=== PATIENT | female | born 1960 | race Caucasian/White ===

== ENCOUNTER 2016-10-23 11:31 | Emergency (ER) | payer OTHER, MEDICARE ==
[~2016-10-23] VITALS: Ht 165.1 cm; Wt 101.2 kg
[~2016-10-23 11:31] MED LIST: CLEOCIN HCL300 MG PO; CRESTOR20 MG PO; CRESTOR40 M1 PO; DIFLUCAN150 MG PO; DOXYCYCLINE MO100 MG PO; ERYTHROMYCIN5 MG/GM OPH; FLEXERIL10 MG PO; JANUMET 1000 MG1 TAB PO; LANTUS SOL100 UNIT/1 SC; LISINOPRIL10 MG PO; LYRICA150 MG PO; MECLIZINE HCL25 M1 PO; METFORMIN HYDR850 MG PO; MIRAPEX0.125 MG PO; MOTRIN800 MG PO; NORCO 325 MG-51 TAB PO; NOVOLOG FL100 UNIT/1 SC; PERCOCET 325 MG1 TA2 PO; PERCOCET 5-3251 EACH PO; PROTONIX 20MG T20 MG PO; RITE AID MELATO10 MG PO; TRAMADOL HCL50 M1 PO; VICODIN 5-3001 EACH PO; VICODIN5-300 PO; VITAMIN D50000 IU PO; ZZZQUIL50 MG/30 M PO
--- NOTE | 2016-10-23 14:44 | ED SKIN/ALLERGY COMPLAINT ---
History of Present Illness General Chief Complaint: Foot or Ankle Injury Stated Complaint: PT HAS PROBLEM WITH HER LEFT FOOT SWELLING Source: patient Exam Limitations: no limitations Vital Signs & Intake/Output Vital Signs & Intake/Output Vital Signs Date Time Temp Pulse Resp B/P Pulse O2 O2 Flow FiO2 Ox Delivery Rate 10/23 1524 98.5 83 20 164/80 94 Room Air 10/23 1201 97.8 91 20 116/78 95 Room Air Allergies Coded Allergies: amoxicillin (Severe, RESPIRATORY, RASH 10/23/16) codeine (Severe, HIVES, RESPIRATORY 10/23/16) clarithromycin (From BIAXIN) (Intermediate, GI 10/23/16) Reconcile Medications Ciprofloxacin HCl (Cipro) 500 MG TABLET 1 TAB PO BID SKIN INFECTION Fluconazole (Diflucan) 200 MG TABLET 1 TAB PO DAILY YEAST INFECTION Hydrocodone/Acetaminophen (Milton 5-325 Tablet) 5 MG-325 MG TABLET 1 TAB PO Q4- 6 PRN PRN FOOT PAIN Hydrocodone/Acetaminophen (Vicodin 5-300 MG Tablet) 1 EACH TABLET 1 TAB PO TID PAIN Insulin Aspart, Recombinant (Novolog Flexpen) 100 UNIT/ML INSULN.PEN 8 UNIT SC TID DM (Reported) Insulin Glargine,Hum.rec.anlog (Lantus Solostar) 100 UNIT/ML (3 ML) INSULN.PEN 40 UNIT SC QHS DM (Reported) [LEG CRAMPS] 2 TAB PO QPM RLS (Reported) Lisinopril 10 MG TABLET 1 TAB PO DAILY BP (Reported) Melatonin 10 MG CAPSULE 40 MG PO QPM SLEEP (Reported) Oxycodone HCl/Acetaminophen (Percocet 5-325 MG Tablet) 1 EACH TABLET 1 TAB PO BID PRN pain Pantoprazole Sodium 20 MG TABLET.DR 1 TAB PO DAILY GI (Reported) Rosuvastatin Calcium (Crestor) 40 MG TABLET 1 TAB PO DAILY CHOLESTEROL ( Reported) Sitagliptin Phos/Metformin HCl (Janumet 50-1,000 MG Tablet) 50 MG-1,000 MG TABLET 1 TAB PO BID DM (Reported) Sulfamethoxazole/Trimethoprim (Bactrim Ds Tablet) 800 MG-160 MG TABLET 1 TAB PO BID SKIN INFECTION Tramadol HCl 50 MG TABLET 1 TAB PO Q6HR PRN PAIN Triage Note: TRIAGE: PT TO ER C/C L FOOT PAIN X 1 WEEK, CONSTANT SINCE ONSET, RADIATES FROM TOP OF FOOT AND INTO TOES. TRIED IBUPROFEN "WHICH ISN'T HELPING". Triage Nurses Notes Reviewed? yes HPI: Patient presents for evaluation of painful swelling with mild redness of the left foot and toes that began gradually about one week ago. Patient describes it as a constant stabbing pain that becomes severe with walking. She denies any known injury or prior episodes. Nothing seems to make the foot feel better. No associated fever or cold symptoms. Past History Travel History Traveled to [place] past 21 day No Medical History Any Pertinent Medical History? see below for history Neurological: NONE EENT: NONE Cardiovascular: hyperlipidemia Respiratory: NONE Gastrointestinal: NONE Hepatic: NONE Renal: NONE Musculoskeletal: NONE Psychiatric: NONE Endocrine: diabetes Blood Disorders: NONE Cancer(s): NONE CHIEF HUMAN RESOURCES OFFICER/Reproductive: NONE Tetanus Vaccine: 11/02/15 Surgical History Surgical History: non-contributory Psychosocial History Who do you live with Family Services at Home None What is your primary language Divehi Tobacco Use: Current Daily Use Daily Tobacco Use Amount/Type: => 5 Cigarettes daily ETOH Use: occasional use Illicit Drug Use: denies illicit drug use Family History Hx Contributory? No Review of Systems Review of Systems Constitutional: Reports: no symptoms. EENTM: Reports: no symptoms. Respiratory: Reports: no symptoms. Cardiovascular: Reports: no symptoms. GI: Reports: no symptoms. Genitourinary: Reports: no symptoms. Musculoskeletal: Reports: no symptoms. Skin: Reports: see HPI. Neurological/Psychological: Reports: no symptoms. Hematologic/Endocrine: Reports: no symptoms. Immunologic/Allergic: Reports: no symptoms. All Other Systems: Reviewed and Negative Physical Exam Physical Exam General Appearance: SEE BELOW Comments: Gen.: Well-nourished, well-developed, no acute respiratory distress. Head: Normocephalic, atraumatic. Eyes: Normal inspection bilaterally Ears: Normal inspection bilaterally Nose: Normal inspection, nasal cannula in place Throat/mouth : Moist mucosa Neck: Supple, full range of motion, no goiter Heart: Regular rate and rhythm Lungs: Quiet respirations Back: Normal range of motion Extremities: Left foot: Mild soft tissue swelling and erythema of the toes and distal foot, patient's toenails are thickened and slightly discolored. Neurologic: Cranial nerves grossly intact, speech is clear Skin: warm and dry Psychiatric: Calm, cooperative, no apparent delusions or hallucinations Progress Differential Diagnosis: abscess/cellulitis, OCCULT TRAUMA Plan of Care: Orders Procedure Date/time Status Durable Medical Equipment 10/23 1601 Active Diagnostic Imaging: Discussed w/RAD: Radiology Read. Radiology Impression: PATIENT: MONICA NICHOLSON PRESENT AGE: 56 PATIENT ACCOUNT NO: [id number] : 64 LOCATION: [facility] ORDERING PHYSICIAN: NICK GUTIERRES MD SERVICE DATE: 10/23/16-1441 EXAM TYPE: RAD - XRY-FOOT COMPLETE, LEFT EXAMINATION: XR FOOT, LEFT CLINICAL INFORMATION: Swelling and tenderness of distal left foot. Evaluate for occult trauma. COMPARISON: None TECHNIQUE: AP, lateral, and oblique views of the left foot. FINDINGS: No fracture or malalignment is identified. There are plantar and posterior calcaneal spurs. There are mild degenerative changes of the talonavicular joint. There is mild nonspecific soft tissue swelling in the dorsum of the distal foot. IMPRESSION: Minor degenerative changes. Mild dorsal soft tissue swelling. Calcaneal spurs. Otherwise, unremarkable radiographs. DICTATED BY: TAI EL MD DATE/TIME DICTATED:10/23/161506 ELECTRIC MOTOR TESTER ASSEMBLER:RUBA DATE/TIME TRANSCRIBED:10/23/161506 CONFIDENTIAL, DO NOT COPY WITHOUT APPROPRIATE AUTHORIZATION. <Electronically signed in Other Vendor System> SIGNED BY: TAI EL MD 10/23/161512 Comments: Patient treated with an [place]ago wrap and provided crutches. Departure Departure Disposition: HOME OR SELF CARE Condition: Stable Clinical Impression Primary Impression: Cellulitis of left foot Referrals: KENA DODD (PCP/Family) Departure Forms: Customer Survey General Discharge Information Prescriptions: Current Visit Scripts Ciprofloxacin HCl (Cipro) 1 TAB PO BID #14 TAB Sulfamethoxazole/Trimethoprim (Bactrim Ds Tablet) 1 TAB PO BID #14 TAB Fluconazole (Diflucan) 1 TAB PO DAILY #3 TAB Hydrocodone/Acetaminophen (Milton 5-325 Tablet) 1 TAB PO Q4-6 PRN PRN FOOT PAIN #16 TAB
--- NOTE | 2016-10-23 15:13 | RADIOLOGY REPORT ---
EXAMINATION: XR FOOT, LEFT CLINICAL INFORMATION: Swelling and tenderness of distal left foot. Evaluate for occult trauma. COMPARISON: None TECHNIQUE: AP, lateral, and oblique views of the left foot. FINDINGS: No fracture or malalignment is identified. There are plantar and posterior calcaneal spurs. There are mild degenerative changes of the talonavicular joint. There is mild nonspecific soft tissue swelling in the dorsum of the distal foot. IMPRESSION: Minor degenerative changes. Mild dorsal soft tissue swelling. Calcaneal spurs. Otherwise, unremarkable radiographs.
[2016-10-23 15:24] VITALS: BP 164/80
[2016-10-23] MEDS ORDERED: JANUMET 50-1,01 EACH PO (15:29)
[2016-10-23] MEDS ORDERED: CRESTOR40 M2 PO (15:29)
[2016-10-23] MEDS ORDERED: LISINOPRIL10 M1 PO (15:30)
[2016-10-23] MEDS ORDERED: PANTOPRAZOLE SO20 M1 PO (15:30)
[2016-10-23] MEDS ORDERED: LEG CRAMPS PO (15:31)
[2016-10-23] MEDS ORDERED: MELATONIN10 M5 PO (15:31)
[2016-10-23] MEDS ORDERED: CIPRO500 M1 PO (15:58)
[2016-10-23] MEDS ORDERED: BACTRIM DS TAB1 EACH PO (15:58)
[2016-10-23] MEDS ORDERED: DIFLUCAN200 M1 PO (15:58)
[2016-10-23] MEDS ORDERED: NORCO 5-325 TA1 EACH PO (15:58)
== END 2016-10-23 16:18 ==
LOC: ERH 11:31
DX: L03.116 Cellulitis of left lower limb (principal)
CPT/HCPCS: 73630-LT